=== PATIENT | male | born 1970 | race Caucasian/White ===

== ENCOUNTER 2016-06-07 07:32 | Emergency (ER) | payer SELFPAY ==
[2016-06-07] MEDS ORDERED: Fluorescein Sodium TOPICAL* 1 MG TEST ONE (07:51)
[2016-06-07] MEDS ORDERED: BSS OPTH.SOL* BTL ONE (07:51)
[2016-06-07 08:31] VITALS: BP 138/95
--- NOTE | 2016-06-07 08:34 | UC ---
Eye Complaint HPI - HPI Summary HPI Summary: GRINDING METAL YESTERDAY AND FEELS A PIECE OF METAL GOT INTO LEFT EYE. WAS WEARING SAFETY GOGGLES. NO VISUAL DISTURBANCE. SOME TEARING. FEELS BETTER TODAY. - History of Current Complaint Chief Complaint: UCEye Stated Complaint: PEICE OF METAL IN EYE Time Seen by Provider: 06/07/16 08:04 Hx Obtained From: Patient Onset/Duration: Sudden Onset, Lasting Days, Still Present - BUT MUCH BETTER TODAY Timing: Constant Severity Initially: Moderate Severity Currently: Mild Pain Intensity: 1 Pain Scale Used: 0-10 Numeric Location of Injury: Other - LEFT EYE Aggravating Factor(s): Blinking Alleviating Factor(s): Nothing Associated Signs And Symptoms: Positive: Drainage (Clear). Negative: Photophobia, Drainage (Purulent), Vision Impairment Bilateral, Vision Impairment Right, Vision Impairment Left, Fever, Swelling - Allergies/Home Medications Allergies/Adverse Reactions: Allergies Allergy/AdvReac Type Severity Reaction Status Date / Time Naproxen [From Aleve] Allergy Swelling Verified 06/07/16 07:45 Pseudoephedrine Allergy Swelling Verified 06/07/16 07:45 [From Sudafed] Home Medications: Home Medications NK [No Home Medications Reported] 06/07/16 [History Confirmed 06/07/16] PMH/Surg Hx/FS Hx/Imm Hx Endocrine History Of: Reports: Diabetes - TYPE 2- DIET CONTROLLED Cardiovascular History Of: Denies: Hypertension, Congestive Heart Failure GI/ History Of: Denies: Renal Disease - Surgical History Surgical History: Yes Surgery Procedure, Year, and Place: APPENDECTOMY, TENDON REPAIR, NECK SURGERY - Family History Known Family History: Positive: Diabetes Family History: No fam h/o resp disease - Social History Alcohol Use: Occasionally Alcohol Amount: x2/week Substance Use Type: None Smoking Status (MU): Never Smoked Tobacco Review of Systems Constitutional: Negative Eyes: Drainage, Eye Redness Respiratory: Negative Cardiovascular: Negative Gastrointestinal: Negative All Other Systems Reviewed And Are Negative: Yes Physical Exam Triage Information Reviewed: Yes Appearance: Well-Appearing, No Pain Distress, Well-Nourished Vital Signs: Initial Vital Signs Temp 98 F 06/07/16 07:40 Pulse 84 06/07/16 07:40 Resp 16 06/07/16 07:40 BP 149/90 06/07/16 07:40 Pulse Ox 99 06/07/16 07:40 Vital Signs Reviewed: Yes Eyes: Positive: Conjunctiva Inflamed - MILD LEFT EYE REDNESS, Discharge - LEFT EYE TEARING. NO PURULENCE, Other: - NO FB OR CORNEAL ABRASION SEEN ON EXAM. NO FLUORESCEIN UPTAKE ENT: Positive: Hearing grossly normal Neck: Positive: Supple Respiratory: Positive: No respiratory distress, No accessory muscle use Cardiovascular: Positive: Pulses Normal Abdomen Description: Positive: Soft Musculoskeletal: Positive: No Edema Neurological: Positive: Alert Psychological: Positive: Age Appropriate Behavior Skin: Negative: rashes Eye Complaint Course/Dx - Differential Dx/Diagnosis Provider Diagnoses: IRRITANT CONJUNCTIVITIS - LEFT EYE Discharge - Discharge Plan Condition: Stable Disposition: HOME Referrals: Adolfo Fitzgerald MD [Primary Care Provider] - If Needed Additional Instructions: IRRITANT CONJUNCTIVITIS: You have an irritation to your eye. Conjunctivitis causes redness, mild discomfort, itching, and mattering on the eyelids. Your symptoms are likely due to irritation from a foreign body that was spontaneously expelled from your eye. There was no sign of persistent foreign body or corneal abrasion on exam today. Should you develop increasing eye pain, severe swelling, decreased vision, or fail to improve as expected, please see an eye doctor [facility]. NO FOREIGN BODY OR SCRATCH SEEN ON EXAM TODAY. KEEP LUBRICATED WITH SALINE EYE DROPS. SEEK FOLLOW-UP IF SYMPTOMS NOT CONTINUING TO IMPROVE OVER THE NEXT SEVERAL DAYS.
== END 2016-06-07 08:38 | disposition home or self-care (01) ==
LOC: UCEAST 07:32
DX: H10.32 Unspecified acute conjunctivitis, left eye (principal); Z88.6 Allergy status to analgesic agent
CPT/HCPCS: 99212; A9270-GY; G0463

== ENCOUNTER 2016-11-15 14:14 | Inpatient (IN) | payer BC ==
[2016-11-15] MEDS ORDERED: Morphine INJ* 4 MG/ML 1 ML SYRINGE IV ONE (14:20)
[2016-11-15] MEDS ORDERED: Aspirin TAB* 325 MG PO ONE (14:23)
[2016-11-15] MEDS ORDERED: Ondansetron INJ* 2 MG/ML VIAL IV ONE (14:29)
[2016-11-15 14:30] LABS: Hematocrit 50 % (42-52); Hemoglobin 17.3 g/dl (14.0-18.0); Mean Corpuscular HGB Conc 35 g/dl (31-36); Mean Corpuscular Hemoglobin 28 pg (27-31); Mean Corpuscular Volume 82 fL (80-94); Mean Platelet Volume 8 um3 (7.4-10.4); Red Blood Count 6.11 10^6/ul (4.0-5.4); Red Cell Distribution Width 13 % (10.5-15); White Blood Count 9.7 10^3/ul (3.5-10.8)
[2016-11-15] MEDS ORDERED: Ondansetron INJ* 2 MG/ML VIAL ONE (14:30)
--- NOTE | 2016-11-15 14:40 | RAD ---
INDICATION: Chest pain COMPARISON: April 11, 2016 TECHNIQUE: An AP portable view obtained at 1430 hours is submitted. FINDINGS: Bones/Soft Tissues: There are no acute bony findings. There is prior cervical fusion Cardiomediastinal: The cardiomediastinal silhouette is normal. Lungs: There are no infiltrates. Pleura: There are no pleural effusions. Other: None IMPRESSION: NO ACTIVE DISEASE
[2016-11-15 14:45] LABS: Albumin 4.6 g/dL (3.2-5.2); BUN/Creatinine Ratio 11.5 (8-20); Calcium 9.8 mg/dL (8.6-10.3); EGFR African American 89.8 (>60); EGFR Non-African American 69.9 (>60); Potassium 4.4 mmol/L (3.5-5.0); Total Bilirubin 0.6 mg/dL (0.2-1.0); Total Protein 7.6 g/dL (6.4-8.9); Troponin I 0.02 ng/mL (<0.04)
[2016-11-15] MEDS ORDERED: Heparin for STEMI(*) 5,000 UNITS/ML 1 ML VIAL IV ONE (15:16)
[2016-11-15] MEDS ORDERED: Ticagrelor* 90 MG TAB PO ONE (15:16)
[2016-11-15 15:17] LABS: TSH (Thyroid Stimulating Horm) 1.58 mcIU/mL (0.34-5.60)
[2016-11-15] MEDS ORDERED: Heparin 2 UNITS/ML IVPREMIX* 3,000 ML IV ONE (15:18)
[2016-11-15] MEDS ORDERED: Iohexol 350 (CONTRAST) 200 ML MDV IV ONE ×2 (15:18→15:44)
[2016-11-15] MEDS ORDERED: Lidocaine 1% INJ* 10 MG/ML 30 ML SDV ONE (15:18)
[2016-11-15] MEDS ORDERED: nitroGLYCERIN DRIP* 250 ML ONE (15:18)
[2016-11-15] MEDS ORDERED: fentaNYL* 50 MCG/ML 2 ML VIAL (100 MCG VIAL) ONE (15:18)
[2016-11-15] MEDS ORDERED: Midazolam* 1 MG/ML 5 ML VIAL (5 MG) ONE (15:18)
[2016-11-15] MEDS ORDERED: Bivalirudin(*) 250 MG VIAL ONE (15:29)
[2016-11-15] MEDS ORDERED: Heparin(*) 1000 UNIT/ML 10 ML VIAL CATH LAB IV ONE (15:35)
[2016-11-15] MEDS ORDERED: Nitroglycerin TAB 0.4 MG* 0.4 MG TAB SL PRN (16:19)
[2016-11-15] MEDS ORDERED: Ondansetron INJ* 2 MG/ML VIAL IV PRN (16:22)
[2016-11-15] MEDS ORDERED: Docusate CAP* 100 MG PO PRN (16:22)
[2016-11-15] MEDS ORDERED: fentaNYL* 50 MCG/ML 2 ML VIAL (100 MCG VIAL) IV PRN (16:22)
[2016-11-15] MEDS ORDERED: Zolpidem TAB* 5 MG PO PRN (16:22)
[2016-11-15] MEDS ORDERED: Acetaminophen TAB* 325 MG PO PRN (16:22)
[2016-11-15] MEDS ORDERED: oxyCODONE/Acetamin 5/325 MG* TAB PO PRN (16:22)
[2016-11-15] MEDS ORDERED: NS 0.9% 1000 ML* 1,000 ML IV SCH (16:30)
[2016-11-15] MEDS: Captopril TAB* 12.5 MG PO SCH ×2 (17:23→21:21)
[2016-11-15] MEDS: Atorvastatin* 80 MG TAB PO SCH (17:23)
[2016-11-15] MEDS: Metoprolol Tartrate TAB* 25 MG PO SCH (18:20)
[2016-11-15 20:29] LABS: Troponin I 11.3 ng/mL (<0.04)
--- NOTE | 2016-11-15 20:40 | HP ---
CC: Dr. Juanito Nuñez ADMISSION HISTORY AND PHYSICAL: DATE OF ADMISSION: 11/15/16 INDICATION FOR ADMISSION: Acute coronary syndrome, chest pain. HISTORY OF PRESENT ILLNESS: The patient is a 46-year-old gentleman with a history of borderline felicita betes who came to the emergency room with chest pain. The patient states that at approximately 1 o' clock he started experiencing chest pain that radiated into his jaw and his shoulder. He had sweati ng. He had nausea. He had lightheadedness. The patient left his work and drove to [facility]. On arrival to the [facility], he continued to have the chest pain. He was given Zofran and morphine in the emergency room. His initial EKG showed normal sinus rhythm with nonspecific T- wave abnormalities. The second EKG showed normal sinus rhythm with 1-mm ST segment elevation in the anterior leads consistent with acute myocardial infarction. STEMI Team was called for urgent cardi ac catheterization. PAST MEDICAL HISTORY: Consistent with borderline diabetes, at one point he was on metformin, but he is currently not taking that medication; also has a history of arthritis. PAST SURGICAL HISTORY: None. CURRENT MEDICATIONS: None. ALLERGIES: He is intolerable to NAPROSYN and PSEUDOEPHEDRINE. FAMILY HISTORY: No family history of early coronary artery disease. SOCIAL HISTORY: He is . He denies tobacco use. Rare alcohol use. PHYSICAL EXAMINATION Height is 5 feet 8 inches, weight is 180 pounds, temperature 98.1, heart rate is 90, respiratory rat e is 18, oxygen saturation 100% on 2L, blood pressure 161/60. Sclerae anicteric. Oropharynx is pink without erythema. Carotids are 2+ without bruits. JVD is normal. Thyroid is normal. Cardiac Exa m: S1, S2, without any murmurs, rubs, or gallops. Lungs are clear to auscultation. There is no dul lness to percussion. Abdomen is soft, nontender, and nondistended, with normoactive bowel sounds. E xtremities show no edema. He has 2+ pulses throughout. He has normal pulses in his femoral arterie s. The patient is awake, alert, and oriented. He moves all 4 extremities equally. LABORATORY STUDIES: CBC within normal limits. Chemistries: Sodium 130, BUN 13, creatinine 1.13. Troponin level 0.02. TSH level is normal. D-dimer is less than 200. Chest x-ray is normal. IMPRESSION: This is a 46-year-old gentleman with a history of borderline diabetes, who came to the emergency room with typical anginal-type symptoms. The patient was diagnosed with an acute coronary syndrome, acute myocardial infarction. The patient was taken directly to the cardiac tag and label cutter. Th e patient was given heparin and Brilinta in the emergency room. Further recommendations pending the result of his cardiac catheterization. The cardiac catheterization was described in great detail to the patient and his . Risks and benefits were described. The patient is willing to proceed. [id number]/[facility] #: [id number]
--- NOTE | 2016-11-15 20:40 | ED ---
Sangeeta Almanza Edward, scribed for Janak Loya MD on 11/15/16 at 1420 . HPI Chest Pain - HPI Summary HPI Summary: 46 y/o male presents to ED c/o CP starting hour ago. Patient describes the pain as sharp. The patient was at work when it started. CP is aggravated with deep breaths, and swallowing. The pain radiates down the patient's L arm and to teeth. Associated sx: nausea, diaphoresis. PMHx diet-controlled DM. Non-smoker. FHx DM. - History of Current Complaint Hx Obtained From: Patient Onset/Duration: Started Hours Ago - 1 hour ago Timing: Constant Current Severity: Severe Chest Pain Radiates: Yes Chest Pain Radiates To:: Arm - L arm, Jaw Character: Sharp/Stabbing Aggravating Factor(s): Deep Breaths, Other: - Swallowing Associated Signs and Symptoms: Positive: Chest Pain, Diaphoresis, Nausea - Allergy/Home Medications Allergies/Adverse Reactions: Allergies Allergy/AdvReac Type Severity Reaction Status Date / Time Naproxen [From Aleve] Allergy Swelling Verified 11/15/16 19:18 Pseudoephedrine Allergy Swelling Verified 11/15/16 19:18 [From Sudafed] PMH/Surg Hx/FS Hx/Imm Hx Previously Healthy: No Endocrine/Hematology History: Reports: Hx Diabetes - TYPE 2- DIET CONTROLLED Cardiovascular History: Denies: Hx Congestive Heart Failure, Hx Hypertension GI History: Reports: Hx Diverticulosis History: Denies: Hx Renal Disease Musculoskeletal History: Denies: Hx Rheumatoid Arthritis, Hx Osteoporosis - Surgical History Surgery Procedure, Year, and Place: APPENDECTOMY, TENDON REPAIR, NECK SURGERY - Family History Known Family History: Positive: Diabetes Family History: No fam h/o resp disease - Social History Occupation: Employed Full-time Lives: With Family Alcohol Use: Occasionally Alcohol Amount: x2/week Substance Use Type: Reports: None Hx Tobacco Use: No Smoking Status (MU): Never Smoked Tobacco Review of Systems Positive: Skin Diaphoresis Eyes: Negative ENT: Negative Positive: Chest Pain Respiratory: Negative Positive: Nausea Genitourinary: Negative Musculoskeletal: Negative Skin: Negative Neurological: Negative Psychological: Normal All Other Systems Reviewed And Are Negative: Yes Physical Exam Triage Information Reviewed: Yes Vital Signs On Initial Exam: Initial Vitals Pulse Resp BP Pulse Ox 91 18 152/97 100 11/15/16 14:20 11/15/16 14:20 11/15/16 14:20 11/15/16 14:20 Vital Signs Reviewed: Yes Appearance: Positive: Well-Appearing, No Pain Distress Skin: Positive: Warm, Skin Color Reflects Adequate Perfusion, Diaphoretic Head/Face: Positive: Normal Head/Face Inspection Eyes: Positive: Normal ENT: Positive: Normal ENT inspection Neck: Positive: Supple, Nontender Respiratory/Lung Sounds: Positive: Clear to Auscultation, Breath Sounds Present Cardiovascular: Positive: RRR. Negative: Pulses are Symmetrical in both Upper and Lower Extremities - L radial pulse slightly decreased compared to R radial pulse, Murmur Abdomen Description: Positive: Nontender, Soft Bowel Sounds: Positive: Present Musculoskeletal: Positive: Normal Neurological: Positive: Normal Psychiatric: Positive: Normal, Affect/Mood Appropriate Diagnostics - Vital Signs Vital Signs Temp Pulse Resp BP Pulse Ox 11/15/16 15:23 86 18 149/102 99 11/15/16 14:34 22 11/15/16 14:25 98.1 F 90 18 161/106 100 11/15/16 14:23 100 11/15/16 14:20 91 18 152/97 100 - Laboratory Lab Results: Lab Results 11/15/16 11/15/16 11/15/16 Range/Units 14:18 14:18 14:18 WBC 9.7 (3.5-10.8) 10^3/ul RBC 6.11 H (4.0-5.4) 10^6/ul Hgb 17.3 (14.0-18.0) g/dl Hct 50 (42-52) % MCV 82 (80-94) fL MCH 28 (27-31) pg MCHC 35 (31-36) g/dl RDW 13 (10.5-15) % Plt Count 369 (150-450) 10^3/ul MPV 8 (7.4-10.4) um3 Neut % (Auto) 57.2 (38-83) % Lymph % (Auto) 28.3 (25-47) % Morton % (Auto) 9.7 H (1-9) % Eos % (Auto) 4.0 (0-6) % Baso % (Auto) 0.8 (0-2) % Absolute Neuts (auto) 5.5 (1.5-7.7) 10^3/ul Absolute Lymphs (auto) 2.7 (1.0-4.8) 10^3/ul Absolute Monos (auto) 0.9 H (0-0.8) 10^3/ul Absolute Eos (auto) 0.4 (0-0.6) 10^3/ul Absolute Basos (auto) 0.1 (0-0.2) 10^3/ul Absolute Nucleated RBC 0.01 10^3/ul Nucleated RBC % 0.1 D-Dimer, Quantitative < 200 (Less Than 230) ng/mL Sodium 130 L (133-145) mmol/L Potassium 4.4 (3.5-5.0) mmol/L Chloride 101 (101-111) mmol/L Carbon Dioxide 19 L (22-32) mmol/L Anion Gap 10 (2-11) mmol/L BUN 13 (6-24) mg/dL Creatinine 1.13 (0.67-1.17) mg/dL Est GFR ( Amer) 89.8 (>60) Est GFR (Non-Af Amer) 69.9 (>60) BUN/Creatinine Ratio 11.5 (8-20) Glucose 379 H (70-100) mg/dL Lactic Acid (0.5-2.0) mmol/L Calcium 9.8 (8.6-10.3) mg/dL Total Bilirubin 0.60 (0.2-1.0) mg/dL AST 14 (13-39) U/L ALT 20 (7-52) U/L Alkaline Phosphatase 79 (34-104) U/L Troponin I 0.02 (<0.04) ng/mL Total Protein 7.6 (6.4-8.9) g/dL Albumin 4.6 (3.2-5.2) g/dL Globulin 3.0 (2-4) g/dL Albumin/Globulin Ratio 1.5 (1-3) TSH 1.58 (0.34-5.60) mcIU/mL 11/15/16 Range/Units 14:18 WBC (3.5-10.8) 10^3/ul RBC (4.0-5.4) 10^6/ul Hgb (14.0-18.0) g/dl Hct (42-52) % MCV (80-94) fL MCH (27-31) pg MCHC (31-36) g/dl RDW (10.5-15) % Plt Count (150-450) 10^3/ul MPV (7.4-10.4) um3 Neut % (Auto) (38-83) % Lymph % (Auto) (25-47) % Morton % (Auto) (1-9) % Eos % (Auto) (0-6) % Baso % (Auto) (0-2) % Absolute Neuts (auto) (1.5-7.7) 10^3/ul Absolute Lymphs (auto) (1.0-4.8) 10^3/ul Absolute Monos (auto) (0-0.8) 10^3/ul Absolute Eos (auto) (0-0.6) 10^3/ul Absolute Basos (auto) (0-0.2) 10^3/ul Absolute Nucleated RBC 10^3/ul Nucleated RBC % D-Dimer, Quantitative (Less Than 230) ng/mL Sodium (133-145) mmol/L Potassium (3.5-5.0) mmol/L Chloride (101-111) mmol/L Carbon Dioxide (22-32) mmol/L Anion Gap (2-11) mmol/L BUN (6-24) mg/dL Creatinine (0.67-1.17) mg/dL Est GFR ( Amer) (>60) Est GFR (Non-Af Amer) (>60) BUN/Creatinine Ratio (8-20) Glucose (70-100) mg/dL Lactic Acid 2.8 H* (0.5-2.0) mmol/L Calcium (8.6-10.3) mg/dL Total Bilirubin (0.2-1.0) mg/dL AST (13-39) U/L ALT (7-52) U/L Alkaline Phosphatase (34-104) U/L Troponin I (<0.04) ng/mL Total Protein (6.4-8.9) g/dL Albumin (3.2-5.2) g/dL Globulin (2-4) g/dL Albumin/Globulin Ratio (1-3) TSH (0.34-5.60) mcIU/mL Result Diagrams: 11/15/16 14:18 11/15/16 14:18 Lab Statement: Any lab studies that have been ordered have been reviewed, and results considered in the medical decision making process. - Radiology CXR Xray Interpretation: No Acute Changes - NO ACTIVE DISEASE Radiology Interpretation Completed By: Radiologist - EKG 1 EKG Rhythm: Sinus Rhythm EKG Interpretation: 14:15 - Non specific inferior changes. Patterns of early repolarization 2 EKG Interpretation: 14:52 - QS complexes in v1 and v2, flipped T's @ inferior leads III and avF Chest Pain Course/Dx - Course Course Of Treatment: Mr. Chin presented with the sudden onset of severe left chest pain radiating to the left arm and his teeth. It was pleuritic with no other exacerbating or relieving factors. He was nauseated and diaphoretic and SOB. On arrival he was immediately brought back and an ecg was obtained. He had some mild T-wave changes inferiortly and slight ST elevation in V1 and V2 with a nice concave appearance. IV was started and he was given ASA and Morphine with some relief. Ecg was repeated 30 minutes after arrival and looked similar except that the inferior changes were more pronounced and there were QS complexes in V1 and V2. Dr. Barros was contacted at that point and came to the ED to evaluate the patient. 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 - Diagnoses Provider Diagnoses: NSTEMI (non-ST elevated myocardial infarction) - Provider Notifications Discussed Care Of Patient With: Dr. Barros - Critical Care Time Critical Care Time: 30-74 min Discharge - Discharge Plan Condition: Fair Disposition: ADMITTED TO [facility] The documentation as recorded by the Sangeeta thomas Edward accurately reflects the service I personally performed and the decisions made by , Janak Loya MD.
[2016-11-15] MEDS: Ticagrelor* 90 MG TAB PO SCH (21:22)
[2016-11-16] MEDS: Metoprolol Tartrate TAB* 25 MG PO SCH (01:07)
[2016-11-16 02:31] LABS: Troponin I 14.07 ng/mL (<0.04)
[2016-11-16 05:21] LABS: Hematocrit 45 % (42-52); Hemoglobin 15.2 g/dl (14.0-18.0); Mean Corpuscular HGB Conc 34 g/dl (31-36); Mean Corpuscular Hemoglobin 28 pg (27-31); Mean Corpuscular Volume 84 fL (80-94); Mean Platelet Volume 8 um3 (7.4-10.4); Red Blood Count 5.37 10^6/ul (4.0-5.4); Red Cell Distribution Width 13 % (10.5-15); White Blood Count 11.4 10^3/ul (3.5-10.8)
[2016-11-16 05:48] LABS: Albumin 3.7 g/dL (3.2-5.2); BUN/Creatinine Ratio 18.1 (8-20); Calcium 8.8 mg/dL (8.6-10.3); EGFR African American 128.3 (>60); EGFR Non-African American 99.7 (>60); Globulin 2.4 g/dL (2-4); HDL Cholesterol 24.2 mg/dL; Total Bilirubin 0.6 mg/dL (0.2-1.0); Total Protein 6.1 g/dL (6.4-8.9)
[2016-11-16] MEDS ORDERED: Dextrose 50% Syringe 50 ML* 25 GM/50 ML SYRINGE IV PUSH PRN (07:33)
[2016-11-16] MEDS ORDERED: Insulin GLARGINE(*) 1 UNITS UNIT SUBCUT SCH (08:00)
[2016-11-16 09:06] LABS: Troponin I 10.05 ng/mL (<0.04)
--- NOTE | 2016-11-16 09:10 | ECHO ---
Patient: KARLA SONG [facility] Rec#: [id number] : 1970 Date: 11/16/2016 Age: 46y Height: 167.64 cm / 66.0 in Weight: 83.91 kg / 184.9 lbs Sex: M BSA: 1.93 Room#: [facility] Admit Date#: 11/15/2016 Type: Inpatient Referring: Juanito Nuñez MD Reading: Juanito Nuñez MD Java Programming Professor: Lorna Hazel ARSEN CC: Adolfo Fitzgerald MD Transthoracic Echocardiogram Indication: STEMI/s/p PCI BP: 132/91 HR: 75 Rhythm: NSR Findings History: STEMI with PCI to LAD 11/15/16, DM. Technical Comments: The study quality is good. Completed at 0841. Left Ventricle: The left ventricular chamber size is normal. Septal wall hypertrophy is observed. There is a focal wall motion abnormality present.The mid to distal anterior wall, upper septum, and apical region has ssevere hypo to akinesis. There is moderate to severely decreased left ventricular systolic function. The estimated ejection fraction is 30-35%. Visually estimated LVEF is 30 %. Abnormal left ventricular diastolic function is observed. Left Atrium: The left atrial chamber size is normal. Right Ventricle: The right ventricular cavity size is normal. The right ventricular global systolic function is normal. Right Atrium: The right atrial cavity size is normal. Aortic Valve: The aortic valve is trileaflet. There is no evidence of aortic valve thickening. There is no evidence of aortic regurgitation. There is no evidence of aortic stenosis. Mitral Valve: The mitral valve leaflets are mildly thickened. There is mild mitral regurgitation. There is no evidence of mitral stenosis. Tricuspid Valve: The tricuspid valve leaflets are normal. There is a physiologic tricuspid regurgitation. Unable to estimate the right ventricular systolic pressure. There is no tricuspid stenosis. Pulmonic Valve: The pulmonic valve appears normal. There is trace to mild pulmonic regurgitation. There is no pulmonic stenosis. Pericardium: The pericardium appears normal. Aorta: There is no dilatation of the ascending aorta. There is no dilatation of the aortic arch. There is no dilation of the aortic root. Pulmonary Artery: The main pulmonary artery appears normal. Venous: The inferior vena cava appears normal in size. There is a greater than 50% respiratory change in the inferior vena cava dimension. Conclusions The left ventricular chamber size is normal. The mid to distal anterior wall, upper septum, and apical region has ssevere hypo to akinesis. There is moderate to severely decreased left ventricular systolic function. The estimated ejection fraction is 30-35%. Visually estimated LVEF is 30 %. There is mild mitral regurgitation. There is trace to mild pulmonic regurgitation. No reports of prior studies were offered for comparison. Measurements Name Value Normal Range RVIDd (AP) 2D 2.7 cm (0.9 - 2.6) RVDdMajor (2D) 2.9 cm (2.2 - 4.4) RAd ISD 4CH 3.8 cm (3.4 - 4.9) RA (A4C)W 3.3 cm (2.9 - 4.6) IVSd (2D) 1.2 cm (0.6 - 1) LVPWd (2D) 0.9 cm (0.6 - 1) LVIDd (2D) 3.7 cm (3.6 - 5.4) LVIDs (2D) 2.8 cm - LV FS (2D) 29 % (25 - 45) Aortic Annulus 2 cm (1.4 - 2.6) Ao root diameter (2D) 3.3 cm (2.1 - 3.5) Ascending Ao 2.8 cm (2.1 - 3.4) Aortic arch 2.2 cm (1.8 - 3.4) Descending Ao 0.4 cm - LA dimension (AP) 2D 3.5 cm (2.3 - 3.8) LAd ISD 4CH 5 cm (2.9 - 5.3) LA ISD 4CH W 3.9 cm (2.5 - 4.5) Name Value Normal Range LA ESV SP 4CH (A/L) 50 ml - LA ESV SP 2CH (A/L) 44 ml - LA ESV BP (A/L) 47 ml - LA ESV BP (A/L) index 24.48 ml/m2 - LA ESV SP 4CH (MOD) 46 ml - LA ESV SP 2CH (MOD) 43 ml - Name Value Normal Range MV E-wave Vmax 0.8 m/sec - MV deceleration time 198 msec - MV A-wave Vmax 0.9 m/sec - MV E:A ratio 1.2 ratio - LV septal e' Vmax 0.08 m/sec - LV lateral e' Vmax 0.07 m/sec - LV E:e' septal ratio 10 ratio - LV E:e' lateral ratio 11.42 ratio - Name Value Normal Range AV Vmax 1.3 m/sec - AV VTI 27.82 cm - AV peak gradient 6.35 mmHg - AV mean gradient 2.7 mmHg - LVOT Vmax 1.1 m/sec - LVOT VTI 23 cm - LVOT peak gradient 4.93 mmHg - LVOT mean gradient 2.26 mmHg - Name Value Normal Range TR Vmax 2.4 m/sec - TR peak gradient 23 mmHg - RAP 3 mmHg - RVSP 26 mmHg - IVC diameter 2.1 cm - Name Value Normal Range PV Vmax 0.6 m/sec - PV peak gradient 1.44 mmHg -
[2016-11-16] MEDS: Ticagrelor* 90 MG TAB PO SCH ×2 (09:18→21:31)
[2016-11-16] MEDS: Aspirin Low Dose CHEW TAB* 81 MG PO SCH (09:18)
[2016-11-16] MEDS: Captopril TAB* 12.5 MG PO SCH ×3 (09:19→21:30)
[2016-11-16] MEDS: Enoxaparin(*) 40 MG/0.4 ML SYR SUBCUT SCH (09:19)
[2016-11-16] MEDS: Insulin LISPRO* 1 UNITS UNIT SUBCUT SCH ×3 (09:19→17:57)
[2016-11-16] MEDS: Metoprolol Succinate XL TAB* 25 MG PO SCH ×2 (09:20→21:30)
--- NOTE | 2016-11-16 16:10 | CONS ---
CC: Dr. Nuñez; Dr. Fitzgerald. * CONSULTATION REPORT: DATE OF CONSULTATION: 11/16/16 REQUESTING PHYSICIAN: Dr. Nuñez. PRIMARY CARE PROVIDER: Dr. Fitzgerald. REASON FOR CONSULTATION: Diabetic management. HISTORY OF PRESENT ILLNESS: Vinayak Chin is a 46-year-old male who presented to the hospital urgently on 11/15/16 complaining of chest pain and was noted to have an ST elevation [place]. 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 Nuñez placed 2 stents in the proximal and mid distal LAD. Post cardiac catheterization, he was noted to have cardiomyopathy with EF of 30%. He is currently monitored in the intensive care unit post cath. The patient has a history of diabetes, diagnosed 5 years ago and as per the patient, he discontinued his metformin since his sugars had normalized and he did not need the medications any more. It was noted that the patient's sugars had been into 200 levels throughout hospital stay and his hemoglobin A1c is 11.7. Furthermore, when the patient was further questioned, he stated that he did not see Dr. Fitzgerald for over and year and a half. He stated that he checked his sugars was over 3 months ago. PAST MEDICAL HISTORY: 1. History of diabetes 5 years ago, currently not treated. 2. Appendectomy. 3. History of C-spine fusion. 4. History of right arm tendon repair. 5. History of diverticulosis with diverticulitis in the past. MEDICATIONS: At home, none. Current medications in the hospital include: 1. Aspirin 81 mg daily. 2. Captopril 12.5 mg 3 times a day. 3. Atorvastatin 80 mg daily. 4. Colace on a p.r.n. basis. 5. Lovenox 40 mg subcutaneously every 24 hours for DVT prophylaxis. 6. Metoprolol succinate 25 mg b.i.d. 7. Nitroglycerin on a p.r.n. basis. 8. Brilinta 90 mg b.i.d. 9. Fentanyl on a p.r.n. basis. ALLERGIES: Include NAPROXEN and PSEUDOEPHEDRINE. SOCIAL HISTORY: The patient denies any tobacco or drug use. He drinks a 6- pack beer on almost a weekly basis. 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 FAMILY HISTORY: Positive for father with diabetes, mother with heart disease diagnosed into her 50s and current diagnosis of hypertension. Both his parents are currently in their 60s. The patient's younger sister has a history of CHF and diabetes. REVIEW OF SYSTEMS: Please see history of present illness. Specifically, the patient stated that his sugars had been between 80 and 120 fasting up to 3 months ago when he stopped checking them. He denies any headaches, blurry vision. He denies any polyuria or polydipsia. After cardiac catheterization, he had not had any more episodes of chest pain. All the remaining 14 systems were reviewed with the patient and otherwise were negative. PHYSICAL EXAMINATION: Blood pressure 120/82, heart rate of 85 and regular, respiratory rate 13, oxygen saturation 98% on room air, temperature of 98.4. General: This is a very pleasant 46-year-old male with a BMI of 30. The patient is in no acute distress. Alert, awake, and oriented x3. HEENT: Head is atraumatic and normocephalic. Eyes: Pupils are equal, reactive to light and accommodation. Oropharynx clear. Mucosa moist. Neck: Supple. No JVD. No bruit bilaterally. Cardiovascular: Regular rate and rhythm. No murmur. Respiratory: Clear to auscultation bilaterally. Abdomen: Soft and nontender. Bowel sounds present in all 4 quadrants. Extremities: There is no edema. Pulses are +2 bilaterally. No clubbing or cyanosis. Neuro Evaluation: Speech is clear. Cranial nerves II through XII grossly intact. Motor strength is 5/5 bilaterally. On evaluation of the skin, no ecchymotic areas or rashes noted. Psychiatric evaluation: Pleasant, cooperative with evaluation, oriented x3 with no evidence of anxiety or depression. LABORATORY DATA/DIAGNOSTIC STUDIES: Current laboratory data showed white blood cell count of 11.4, hemoglobin of 15.2, hematocrit of 45, and platelets of 314. Sodium is 131, potassium 4.0, chloride 104, carbon dioxide 21, BUN 15, creatinine 0.83. Liver function tests showed a mild elevation of AST at 52, otherwise unremarkable. The patient's today's troponin was 10.05 and the patient's troponin peaked at 14 yesterday. The patient's LDL was noted to be 108, total cholesterol of 169, and triglycerides of 185. TSH at admission was 1.58. Hemoglobin A1c of 11.4. The patient's transthoracic echocardiogram showed EF of 30% to 35% with mid to distal arterial wall, upper septum, and apical regions severe hypokinesis, and mild mitral regurgitation. The patient's most recent EKG obtained today showed mild resolving ST elevation in V1 and V3. Reciprocal changes that were present prior to this ECG in the inferior leads are now resolved. ASSESSMENT AND PLAN: 1. In regards to coronary artery disease, this is under the care of Dr. Nuñez. The patient is on Brilinta, aspirin, and beta-blockers, and DAXA inhibitors. 2. In regards to diabetes, judging from the patient's hemoglobin A1c, diabetes had been uncontrolled for quite some time. The patient was educated about the need of the use of diabetic diet and using his glucometer right now and on a b.i.d. basis. The patient is going to be placed on insulin sliding scale with Accu-Cheks 3 times a day. Diabetic diet is going to be instituted while in the hospital. He is also going to be placed on insulin none to 35 units daily, but I suspect he may not need it at discharge. The patient will most likely needed to placed back on metformin, which he took initially 5 years ago when he was initially diagnosed with diabetes. The metformin dose cannot be started right way due to the fact patient received contrast within the past 24 hours. I will ask for diabetic project management intern and educator from [facility] to see the patient in consultation. The patient would benefit from referral to [facility] at discharge. Thank you very much for allowing me to see your patient in consult. We will see the patient on a daily basis. [id number]/[facility] #: [id number] MTDD
--- NOTE | 2016-11-16 17:16 | CATH ---
CC: Dr. Adolfo Fitzgerald * CARDIAC CATHETERIZATION REPORT: DATE OF PROCEDURE: 11/15/16 - ROOM #ICU-05 INDICATION FOR PROCEDURE: The patient presents with severe chest discomfort, abnormal EKG suggesting an acute coronary syndrome. PROCEDURE: Coronary arteriography, left heart catheterization, left ventriculography, primary stenting of the proximal LAD with a 2.5 x 16 mm long Synergy drug-eluting stent post dilated to 2.65 to 2.7 mm, primary stenting of the mid to distal LAD with a 2.25 x 24 mm long Synergy drug-eluting stent. DESCRIPTION OF PROCEDURE: The patient was interviewed and examined in the emergency room where the risks and benefits were explained, he understood them and wished to proceed. He was brought to the cardiovascular laboratory where formal time-out was performed. He was prepped and draped in sterile fashion. The right groin area was anesthetized with 1% lidocaine. The right femoral artery was cannulated and a 6-Tuvaluan introducer was placed. Coronary arteriography was performed utilizing a 5-Tuvaluan 4 curved right coronary catheter. The left coronary artery was assessed utilizing a 6-Tuvaluan VL 3.5 curved RunWay guide catheter. Of note, the patient had already received 4000 units of heparin in the emergency room and received Brilinta 180 mg when placed on the labor mediator table. He also received Versed and fentanyl. Decision was then made to intervene into the left anterior descending artery. ACT was checked and found to be subtherapeutic and as such Angiomax bolus and Angiomax drip was started. A 0.014 All Star wire was advanced down the left anterior descending artery and primary stenting of the proximal LAD was performed utilizing the 2.5 x 16 mm long Synergy drug-eluting stent. Following this, the 2.25 x 24 mm long Synergy drug-eluting stent was deployed. Post deployment inflations were made in the proximal balloon utilizing a 2.5 x 8 mm long Emerge balloon to greater than 20 atmospheres. Following this, left heart catheterization was performed utilizing a 5-Tuvaluan pigtail catheter, advanced to the ascending aorta where central aortic pressure was recorded. The catheter was then passed across the aortic valve into the left ventricle where left ventricular pressure was recorded. Left ventriculography was performed utilizing a total of 24 cc of Omnipaque dye at a rate of 12 cc per second. The catheter was then pulled back across the aortic valve to recheck gradient. At the end of the case, injection was made into the right femoral sheath to assess eligibility to utilize closure device. It was found to be acceptable for this and as such a 6/7 Tuvaluan Mynx closure device was deployed with good hemostasis. The total contrast used was 155 cc of Omnipaque dye. The radiation exposure included 9.5 minutes of fluoro time. The air kerma radiation was 839 milligray. The DAP radiation was 5275 microgray per sq. m. RESULTS: HEMODYNAMIC DATA: LEFT HEART CATHETERIZATION: Central aortic pressure recorded at 105/75 with a mean of 90, left ventricular pressure was 108 over left ventricular end diastolic pressure of 19. LEFT VENTRICULOGRAPHY: Performed in the INMAN projection revealed severe hypo to akinesis of the anterior and apical region with preservation of the inferior wall. The overall ejection fraction markedly diminished at 25% to 30%. No significant mitral regurgitation was noted. CORONARY ARTERIOGRAPHY: A. Right coronary artery - a dominant vessel supplying the PDA followed by a thin posterior LV branch, followed by a larger bifurcating posterior left ventricular branch. There was mild disease in the proximal segment of the right coronary artery of approximately 15% to 20%. The mid segment had an area of 25 to 30, the mid to distal areas had turned down to the inferior surface of the heart at 35% to 40% narrowing. The bifurcating last posterior left ventricular branches, more medial branch had a proximal narrowing of 65% to 70%. B. Left coronary artery: 1. Left main - widely patent with no significant narrowing seen. 2. Left anterior descending artery - the left anterior descending artery supplied a large posteriorly directed diagonal branch, which had a mid-segment stenosis of 60% to 65%. The distal portion of this posteriorly directed diagonal branch bifurcated in a small caliber segment with an area of 80% stenosis seen in the superior bifurcation branch. This vessel is extremely small in caliber and clearly less than 2.0 mm. The continuation of the left anterior descending artery had a critical 95% stenosis in a small caliber segment. It gave off a thin mid diagonal branch, which had an ostial narrowing of 60%. This vessel appeared to be somewhat small in caliber. The continuation of the LAD in its mid segment had a critical 90% stenosis followed by a diffusely narrowed segment with up to 80% stenosis. The distal portion was very small in caliber and had a 70% narrowing. 3. Circumflex artery - a non-dominant vessel supplying a thin first obtuse marginal branch and ending in a low-lying obtuse marginal branch. Most of the posterior circulation is being supplied by a posteriorly directed first diagonal branch. INTERVENTION INTO LEFT ANTERIOR DESCENDING ARTERY: Successful reduction of critical 95% lesion in the proximal portion with residual stenosis of 0%, LAM-3 flow, no dissection seen as well as reduction of diffusely long diseased mid to distal segment utilizing a 2.25 x 24 mm long Synergy drug-eluting stent reducing a 90% and 80% stenosis to 0%, LAM-3 flow, no dissection seen. OVERALL ASSESSMENT: Significant multi-vessel disease as described above with critical lesions within the left anterior descending artery. Successful drug- eluting stent placement to left anterior descending artery proximal and mid to distal areas described above. Aggressive therapy with high-dose statin in addition to DAXA inhibitor, beta-mary jane therapy will be pursued. The hospitalist will be consulted for diabetic management given his history of prior diabetes and clearly small caliber vessel suggesting diabetic disease. Eventual assessment of posterior left ventricular branch of right coronary artery and posteriorly directed diagonal branch will be pursued at a later date. [id number]/[facility] #: [id number] [facility]
[2016-11-16] MEDS: Atorvastatin* 80 MG TAB PO SCH (18:06)
[2016-11-17 06:02] LABS: BUN/Creatinine Ratio 16.3 (8-20); Calcium 9.2 mg/dL (8.6-10.3); EGFR African American 113.9 (>60); EGFR Non-African American 88.6 (>60); Potassium 4.2 mmol/L (3.5-5.0)
--- NOTE | 2016-11-17 07:53 | PN ---
Subjective Date of Service: 11/17/16 Interval History: Pt feels "fine", ambulated in the unit yesterday, no CP/SOB Objective Active Medications: Acetaminophen (Tylenol Tab*) 650 mg PO Q4H PRN PRN Reason: HEADACHE/PAIN Aspirin (Aspirin Low Dose Tab*) 81 mg PO DAILY [facility] Last Admin: 11/16/16 09:18 Dose: 81 mg Atorvastatin Calcium (Lipitor*) 80 mg PO 1700 [facility] Last Admin: 11/16/16 18:06 Dose: 80 mg Dextrose (D50w Syringe 50 Ml*) 12.5 gm IV PUSH .FOR FS < 60 - SS PRN PRN Reason: FS < 60 Docusate Sodium (Colace Cap*) 100 mg PO DAILY PRN PRN Reason: CONSTIPATION Enoxaparin Sodium (Lovenox(*)) 40 mg SUBCUT Q24H [facility] Last Admin: 11/16/16 09:19 Dose: 40 mg Fentanyl Citrate (Fentanyl*) 25 mcg IV Q2H PRN PRN Reason: PAIN Insulin Glargine (Lantus(*)) 10 units SUBCUT Q24H [facility] Insulin Human Lispro (Humalog*) 0 units SUBCUT AC [facility] PRN Reason: Protocol Last Admin: 11/16/16 17:57 Dose: 2 unit Lisinopril (Prinivil Tab*) 5 mg PO DAILY [facility] Metformin HCl (Glucophage*) 500 mg PO 0800,1700 [facility] Metoprolol Succinate (Toprol Xl Tab*) 25 mg PO BID [facility] Last Admin: 11/16/16 21:30 Dose: 25 mg Nitroglycerin (Nitroglycerin Tab 0.4 Mg*) 0.4 mg SL Q5M PRN PRN Reason: ANGINA Ondansetron HCl (Zofran Inj*) 4 mg IV Q4H PRN PRN Reason: NAUSEA Oxycodone/Acetaminophen (Percocet 5/325 Tab*) 1 tab PO Q6H PRN PRN Reason: PAIN Ticagrelor (Brilinta*) 90 mg PO BID [facility] Last Admin: 11/16/16 21:31 Dose: 90 mg Zolpidem Tartrate (Ambien Tab*) 5 mg PO BEDTIME PRN PRN Reason: INSOMNIA Last Admin: 11/15/16 21:41 Dose: 5 mg Vital Signs 11/16/16 11/16/16 11/16/16 08:00 08:01 08:30 Temperature 98 F Pulse Rate 74 69 Respiratory 18 17 Rate Blood Pressure 116/83 126/91 (mmHg) O2 Sat by Pulse 99 99 Oximetry 11/16/16 11/16/16 11/16/16 09:00 09:30 10:00 Temperature Pulse Rate 78 75 73 Respiratory 14 16 15 Rate Blood Pressure 111/85 118/84 124/78 (mmHg) O2 Sat by Pulse 99 99 97 Oximetry 11/16/16 11/16/16 11/16/16 10:30 11:00 11:13 Temperature 98.4 F Pulse Rate 74 71 Respiratory 17 12 Rate Blood Pressure 114/79 117/77 (mmHg) O2 Sat by Pulse 98 96 Oximetry 11/16/16 11/16/16 11/16/16 11:30 12:00 12:30 Temperature Pulse Rate 75 83 83 Respiratory 18 16 13 Rate Blood Pressure 97/66 109/76 120/82 (mmHg) O2 Sat by Pulse 96 98 98 Oximetry 11/16/16 11/16/16 11/16/16 13:00 13:30 14:00 Temperature Pulse Rate 92 88 87 Respiratory 15 17 14 Rate Blood Pressure 117/85 112/79 109/83 (mmHg) O2 Sat by Pulse 98 98 99 Oximetry 11/16/16 11/16/16 11/16/16 14:30 15:00 15:30 Temperature 98.8 F Pulse Rate 87 86 84 Respiratory 21 21 20 Rate Blood Pressure 94/62 93/64 114/76 (mmHg) O2 Sat by Pulse 97 97 96 Oximetry 11/16/16 11/16/16 11/16/16 16:00 16:30 17:00 Temperature Pulse Rate Respiratory 10 12 16 Rate Blood Pressure 111/79 109/84 110/77 (mmHg) O2 Sat by Pulse Oximetry 11/16/16 11/16/16 11/16/16 18:00 19:00 19:35 Temperature 99.2 F Pulse Rate 84 Respiratory 15 15 Rate Blood Pressure 126/86 115/79 (mmHg) O2 Sat by Pulse 99 Oximetry 11/16/16 11/16/16 11/16/16 20:00 21:00 21:33 Temperature Pulse Rate 85 86 102 Respiratory 27 17 24 Rate Blood Pressure 110/82 91/59 118/79 (mmHg) O2 Sat by Pulse 97 96 99 Oximetry 11/16/16 11/16/16 11/16/16 22:00 23:00 23:50 Temperature 100.3 F Pulse Rate 84 85 Respiratory 18 17 Rate Blood Pressure 107/73 106/60 (mmHg) O2 Sat by Pulse 97 97 Oximetry 11/16/16 11/16/16 11/17/16 23:57 23:59 00:00 Temperature Pulse Rate 82 80 Respiratory 14 14 15 Rate Blood Pressure (mmHg) O2 Sat by Pulse 98 97 Oximetry 11/17/16 11/17/16 11/17/16 00:01 01:00 01:42 Temperature Pulse Rate 80 92 Respiratory 12 12 15 Rate Blood Pressure 93/68 110/83 (mmHg) O2 Sat by Pulse 97 97 Oximetry 11/17/16 11/17/16 11/17/16 02:00 03:00 03:01 Temperature Pulse Rate 87 93 90 Respiratory 22 24 23 Rate Blood Pressure 91/63 88/60 (mmHg) O2 Sat by Pulse 96 96 96 Oximetry 11/17/16 11/17/16 11/17/16 03:02 03:03 03:25 Temperature Pulse Rate 90 86 Respiratory 23 12 Rate Blood Pressure 79/66 90/62 90/59 (mmHg) O2 Sat by Pulse 96 97 Oximetry 11/17/16 11/17/16 11/17/16 04:00 04:14 05:00 Temperature 98.6 F Pulse Rate 83 86 Respiratory 11 18 21 Rate Blood Pressure 94/52 95/77 (mmHg) O2 Sat by Pulse 96 95 Oximetry 11/17/16 11/17/16 06:00 07:00 Temperature Pulse Rate 83 81 Respiratory 17 13 Rate Blood Pressure 92/66 86/60 (mmHg) O2 Sat by Pulse 96 97 Oximetry Oxygen Devices in Use Now: None Appearance: 46 yo M in nAD, aAOx3 Eyes: No Scleral Icterus, PERRLA Ears/Nose/Mouth/Throat: NL Teeth, Lips, Gums, Mucous Membranes Moist Neck: NL Appearance and Movements; NL JVP, Trachea Midline Respiratory: Symmetrical Chest Expansion and Respiratory Effort, Clear to Auscultation Cardiovascular: NL Sounds; No Murmurs; No JVD, RRR Abdominal: NL Sounds; No Tenderness; No Distention, No Hepatosplenomegaly Lymphatic: No Cervical Adenopathy Extremities: No Edema, No Clubbing, Cyanosis Skin: No Rash or Ulcers, No Nodules or Sclerosis Neurological: Alert and Oriented x 3, NL Muscle Strength and Tone Result Diagrams: 11/16/16 05:00 11/17/16 05:39 Additional Lab and Data: Lab Results 11/15/16 11/15/16 11/15/16 Range/Units 14:18 14:18 14:18 WBC 9.7 (3.5-10.8) 10^3/ul RBC 6.11 H (4.0-5.4) 10^6/ul Hgb 17.3 (14.0-18.0) g/dl Hct 50 (42-52) % MCV 82 (80-94) fL MCH 28 (27-31) pg MCHC 35 (31-36) g/dl RDW 13 (10.5-15) % Plt Count 369 (150-450) 10^3/ul MPV 8 (7.4-10.4) um3 Neut % (Auto) 57.2 (38-83) % Lymph % (Auto) 28.3 (25-47) % [place] % (Auto) 9.7 H (1-9) % Eos % (Auto) 4.0 (0-6) % Baso % (Auto) 0.8 (0-2) % Absolute Neuts (auto) 5.5 (1.5-7.7) 10^3/ul Absolute Lymphs (auto) 2.7 (1.0-4.8) 10^3/ul Absolute Monos (auto) 0.9 H (0-0.8) 10^3/ul Absolute Eos (auto) 0.4 (0-0.6) 10^3/ul Absolute Basos (auto) 0.1 (0-0.2) 10^3/ul Absolute Nucleated RBC 0.01 10^3/ul Nucleated RBC % 0.1 D-Dimer, Quantitative < 200 (Less Than 230) ng/mL Sodium 130 L (133-145) mmol/L Potassium 4.4 (3.5-5.0) mmol/L Chloride 101 (101-111) mmol/L Carbon Dioxide 19 L (22-32) mmol/L Anion Gap 10 (2-11) mmol/L BUN 13 (6-24) mg/dL Creatinine 1.13 (0.67-1.17) mg/dL Est GFR ( Amer) 89.8 (>60) Est GFR (Non-Af Amer) 69.9 (>60) BUN/Creatinine Ratio 11.5 (8-20) Glucose 379 H (70-100) mg/dL Lactic Acid (0.5-2.0) mmol/L Calcium 9.8 (8.6-10.3) mg/dL Total Bilirubin 0.60 (0.2-1.0) mg/dL AST 14 (13-39) U/L ALT 20 (7-52) U/L Alkaline Phosphatase 79 (34-104) U/L Troponin I 0.02 (<0.04) ng/mL Total Protein 7.6 (6.4-8.9) g/dL Albumin 4.6 (3.2-5.2) g/dL Globulin 3.0 (2-4) g/dL Albumin/Globulin Ratio 1.5 (1-3) TSH 1.58 (0.34-5.60) mcIU/mL // Range/Units 14:18 WBC (3.5-10.8) 10^3/ul RBC (4.0-5.4) 10^6/ul Hgb (14.0-18.0) g/dl Hct (42-52) % MCV (80-94) fL MCH (27-31) pg MCHC (31-36) g/dl RDW (10.5-15) % Plt Count (150-450) 10^3/ul MPV (7.4-10.4) um3 Neut % (Auto) (38-83) % Lymph % (Auto) (25-47) % [place] % (Auto) (1-9) % Eos % (Auto) (0-6) % Baso % (Auto) (0-2) % Absolute Neuts (auto) (1.5-7.7) 10^3/ul Absolute Lymphs (auto) (1.0-4.8) 10^3/ul Absolute Monos (auto) (0-0.8) 10^3/ul Absolute Eos (auto) (0-0.6) 10^3/ul Absolute Basos (auto) (0-0.2) 10^3/ul Absolute Nucleated RBC 10^3/ul Nucleated RBC % D-Dimer, Quantitative (Less Than 230) ng/mL Sodium (133-145) mmol/L Potassium (3.5-5.0) mmol/L Chloride (101-111) mmol/L Carbon Dioxide (22-32) mmol/L Anion Gap (2-11) mmol/L BUN (6-24) mg/dL Creatinine (0.67-1.17) mg/dL Est GFR ( Amer) (>60) Est GFR (Non-Af Amer) (>60) BUN/Creatinine Ratio (8-20) Glucose (70-100) mg/dL Lactic Acid 2.8 H* (0.5-2.0) mmol/L Calcium (8.6-10.3) mg/dL Total Bilirubin (0.2-1.0) mg/dL AST (13-39) U/L ALT (7-52) U/L Alkaline Phosphatase (34-104) U/L Troponin I (<0.04) ng/mL Total Protein (6.4-8.9) g/dL Albumin (3.2-5.2) g/dL Globulin (2-4) g/dL Albumin/Globulin Ratio (1-3) TSH (0.34-5.60) mcIU/mL Assess/Plan/Problems-Billing Assessment: 46 yo M with h/o DM 5 yrs ago that resolved with diet as per pt, now s/p 2 x stents in LAD when presented with STEMI - Patient Problems (1) STEMI (ST elevation myocardial infarction) Comment: s/p cath -2x stents to LAD on ASA/Brilinta/lopressor/lisinopril as per Dr. Nuñez. Low SBP at night, may need med adjustment EF 30%-possibly stunned myocardium (2) DM2 (diabetes mellitus, type 2) Comment: Hba1C >11, in the past tx with diet. Cont Lantus - titrate the dose today, cont ISS. Plan to d/c on metformin only. starting metformin today, most likely will need further tritration as outpatient DM education pending Nutrition consult re:cardiac/ADA diet ordered (3) DVT prophylaxis Comment: lovenox Status and Disposition: consult for med management of DM. will follow on daily basis
[2016-11-17] MEDS: Ticagrelor* 90 MG TAB PO SCH ×2 (08:58→21:14)
[2016-11-17] MEDS: Metoprolol Succinate XL TAB* 25 MG PO SCH ×2 (08:58→21:14)
[2016-11-17] MEDS: metFORMIN* 500 MG TAB PO SCH ×2 (08:58→17:33)
[2016-11-17] MEDS: Insulin GLARGINE(*) 1 UNITS UNIT SUBCUT SCH (08:59)
[2016-11-17] MEDS: Insulin LISPRO* 1 UNITS UNIT SUBCUT SCH ×3 (08:59→17:33)
[2016-11-17] MEDS: Aspirin Low Dose CHEW TAB* 81 MG PO SCH (08:59)
[2016-11-17] MEDS: Enoxaparin(*) 40 MG/0.4 ML SYR SUBCUT SCH (09:00)
[2016-11-17] MEDS ORDERED: Lisinopril TAB* 5 MG PO SCH ×2 (09:00→10:45)
[2016-11-17] MEDS: Lisinopril TAB* 5 MG PO SCH (11:02)
[2016-11-17] MEDS: Atorvastatin* 80 MG TAB PO SCH (17:33)
[2016-11-18 05:37] LABS: BUN/Creatinine Ratio 26.6 (8-20); Calcium 9.4 mg/dL (8.6-10.3); EGFR African American 135.8 (>60); EGFR Non-African American 105.6 (>60); Potassium 3.9 mmol/L (3.5-5.0)
[2016-11-18] MEDS: Insulin GLARGINE(*) 1 UNITS UNIT SUBCUT SCH (08:37)
[2016-11-18] MEDS: Insulin LISPRO* 1 UNITS UNIT SUBCUT SCH ×2 (08:38→13:20)
[2016-11-18] MEDS: Enoxaparin(*) 40 MG/0.4 ML SYR SUBCUT SCH (08:38)
[2016-11-18] MEDS: Metoprolol Succinate XL TAB* 25 MG PO SCH (08:38)
[2016-11-18] MEDS: Lisinopril TAB* 5 MG PO SCH (08:38)
[2016-11-18] MEDS: Aspirin Low Dose CHEW TAB* 81 MG PO SCH (08:38)
[2016-11-18] MEDS: metFORMIN* 500 MG TAB PO SCH (08:38)
[2016-11-18] MEDS: Ticagrelor* 90 MG TAB PO SCH (08:38)
--- NOTE | 2016-11-18 08:42 | PN ---
Subjective Date of Service: 11/18/16 Interval History: Pt had another Echo this aM, awaiting results. Feels "fine", denies CP/SOB Objective Active Medications: Acetaminophen (Tylenol Tab*) 650 mg PO Q4H PRN PRN Reason: HEADACHE/PAIN Aspirin (Aspirin Low Dose Tab*) 81 mg PO DAILY [facility] Last Admin: 11/17/16 08:59 Dose: 81 mg Atorvastatin Calcium (Lipitor*) 80 mg PO 1700 [facility] Last Admin: 11/17/16 17:33 Dose: 80 mg Dextrose (D50w Syringe 50 Ml*) 12.5 gm IV PUSH .FOR FS < 60 - SS PRN PRN Reason: FS < 60 Docusate Sodium (Colace Cap*) 100 mg PO DAILY PRN PRN Reason: CONSTIPATION Enoxaparin Sodium (Lovenox(*)) 40 mg SUBCUT Q24H [facility] Last Admin: 11/17/16 09:00 Dose: 40 mg Fentanyl Citrate (Fentanyl*) 25 mcg IV Q2H PRN PRN Reason: PAIN Insulin Glargine (Lantus(*)) 10 units SUBCUT Q24H [facility] Last Admin: 11/17/16 08:59 Dose: 10 units Insulin Human Lispro (Humalog*) 0 units SUBCUT AC [facility] PRN Reason: Protocol Last Admin: 11/17/16 17:33 Dose: 4 unit Lisinopril (Prinivil Tab*) 2.5 mg PO 0900 [facility] Last Admin: 11/17/16 11:02 Dose: 2.5 mg Metformin HCl (Glucophage*) 500 mg PO 0800,1700 [facility] Last Admin: 11/17/16 17:33 Dose: 500 mg Metoprolol Succinate (Toprol Xl Tab*) 25 mg PO BID [facility] Last Admin: 11/17/16 21:14 Dose: 25 mg Nitroglycerin (Nitroglycerin Tab 0.4 Mg*) 0.4 mg SL Q5M PRN PRN Reason: ANGINA Ondansetron HCl (Zofran Inj*) 4 mg IV Q4H PRN PRN Reason: NAUSEA Oxycodone/Acetaminophen (Percocet 5/325 Tab*) 1 tab PO Q6H PRN PRN Reason: PAIN Ticagrelor (Brilinta*) 90 mg PO BID [facility] Last Admin: 11/17/16 21:14 Dose: 90 mg Zolpidem Tartrate (Ambien Tab*) 5 mg PO BEDTIME PRN PRN Reason: INSOMNIA Last Admin: 11/15/16 21:41 Dose: 5 mg Vital Signs 11/17/16 11/17/16 11/17/16 09:00 09:01 10:00 Temperature Pulse Rate 89 87 77 Respiratory 11 9 16 Rate Blood Pressure 88/57 105/82 96/81 (mmHg) O2 Sat by Pulse 97 99 98 Oximetry 11/17/16 11/17/16 11/17/16 11:00 12:00 14:07 Temperature 98 F 97.4 F Pulse Rate 90 Respiratory 13 18 Rate Blood Pressure 100/67 (mmHg) O2 Sat by Pulse Oximetry 11/17/16 11/17/16 11/17/16 14:16 14:43 14:50 Temperature 97.4 F Pulse Rate 90 Respiratory 18 18 8 Rate Blood Pressure 100/67 (mmHg) O2 Sat by Pulse 100 Oximetry 11/17/16 11/17/16 11/17/16 15:00 15:10 15:20 Temperature Pulse Rate Respiratory 11 10 14 Rate Blood Pressure (mmHg) O2 Sat by Pulse Oximetry 11/17/16 11/17/16 11/17/16 15:23 15:30 15:40 Temperature 98.1 F Pulse Rate 100 Respiratory 18 5 2 Rate Blood Pressure 101/73 (mmHg) O2 Sat by Pulse 98 Oximetry 11/17/16 11/17/16 11/17/16 15:50 16:00 16:10 Temperature Pulse Rate Respiratory 11 7 7 Rate Blood Pressure (mmHg) O2 Sat by Pulse Oximetry 11/17/16 11/17/16 11/17/16 16:20 16:30 16:40 Temperature Pulse Rate Respiratory 16 17 10 Rate Blood Pressure (mmHg) O2 Sat by Pulse Oximetry 11/17/16 11/17/16 11/17/16 16:50 17:00 17:10 Temperature Pulse Rate Respiratory 8 8 7 Rate Blood Pressure (mmHg) O2 Sat by Pulse Oximetry 11/17/16 11/17/16 11/17/16 17:20 17:30 17:40 Temperature Pulse Rate Respiratory 7 16 11 Rate Blood Pressure (mmHg) O2 Sat by Pulse Oximetry 11/17/16 11/17/16 11/17/16 17:50 18:00 18:10 Temperature Pulse Rate Respiratory 13 7 5 Rate Blood Pressure (mmHg) O2 Sat by Pulse Oximetry 11/17/16 11/17/16 11/17/16 18:20 18:30 18:40 Temperature Pulse Rate Respiratory 16 16 11 Rate Blood Pressure (mmHg) O2 Sat by Pulse Oximetry 11/17/16 11/17/16 11/17/16 18:50 19:00 19:10 Temperature Pulse Rate Respiratory 10 8 13 Rate Blood Pressure (mmHg) O2 Sat by Pulse Oximetry 11/17/16 11/17/16 11/17/16 19:17 19:20 19:24 Temperature 97.4 F 98.0 F Pulse Rate 90 102 Respiratory 16 14 17 Rate Blood Pressure 100/67 111/75 (mmHg) O2 Sat by Pulse 97 98 Oximetry 11/17/16 11/17/16 11/17/16 19:30 19:35 19:40 Temperature Pulse Rate Respiratory 15 11 12 Rate Blood Pressure (mmHg) O2 Sat by Pulse Oximetry 11/17/16 11/17/16 11/17/16 19:49 19:50 20:00 Temperature Pulse Rate 97 Respiratory 18 11 11 Rate Blood Pressure (mmHg) O2 Sat by Pulse Oximetry 11/17/16 11/17/16 11/17/16 20:10 20:20 20:30 Temperature Pulse Rate Respiratory 21 15 10 Rate Blood Pressure (mmHg) O2 Sat by Pulse Oximetry 11/17/16 11/17/16 11/17/16 20:40 20:50 21:00 Temperature Pulse Rate Respiratory 6 8 11 Rate Blood Pressure (mmHg) O2 Sat by Pulse Oximetry 11/17/16 11/17/16 11/17/16 21:10 21:20 21:30 Temperature Pulse Rate Respiratory 10 16 25 Rate Blood Pressure (mmHg) O2 Sat by Pulse Oximetry 11/17/16 11/17/16 11/17/16 21:40 21:50 22:00 Temperature Pulse Rate Respiratory 0 0 5 Rate Blood Pressure (mmHg) O2 Sat by Pulse Oximetry 11/17/16 11/17/16 11/17/16 22:10 22:20 22:30 Temperature Pulse Rate Respiratory 0 0 13 Rate Blood Pressure (mmHg) O2 Sat by Pulse Oximetry 11/17/16 11/17/16 11/17/16 22:40 22:50 23:00 Temperature Pulse Rate Respiratory 0 12 19 Rate Blood Pressure (mmHg) O2 Sat by Pulse Oximetry 11/17/16 11/17/16 11/17/16 23:10 23:20 23:30 Temperature Pulse Rate Respiratory 7 20 22 Rate Blood Pressure (mmHg) O2 Sat by Pulse Oximetry 11/17/16 11/17/16 11/17/16 23:40 23:44 23:45 Temperature 98.7 F Pulse Rate 97 Respiratory 15 20 Rate Blood Pressure 92/55 (mmHg) O2 Sat by Pulse 97 Oximetry 11/17/16 11/18/16 11/18/16 23:50 00:00 00:10 Temperature Pulse Rate Respiratory 2 0 20 Rate Blood Pressure 97/55 (mmHg) O2 Sat by Pulse Oximetry 11/18/16 11/18/16 11/18/16 00:20 00:30 00:40 Temperature Pulse Rate Respiratory 1 0 0 Rate Blood Pressure (mmHg) O2 Sat by Pulse Oximetry 11/18/16 11/18/16 11/18/16 00:50 01:00 01:10 Temperature Pulse Rate Respiratory 14 20 20 Rate Blood Pressure (mmHg) O2 Sat by Pulse Oximetry 11/18/16 11/18/16 11/18/16 01:20 01:30 01:40 Temperature Pulse Rate Respiratory 19 10 18 Rate Blood Pressure (mmHg) O2 Sat by Pulse Oximetry 11/18/16 11/18/16 11/18/16 01:50 02:00 02:10 Temperature Pulse Rate Respiratory 6 0 0 Rate Blood Pressure (mmHg) O2 Sat by Pulse Oximetry 11/18/16 11/18/16 11/18/16 02:20 02:30 02:40 Temperature Pulse Rate Respiratory 0 3 6 Rate Blood Pressure (mmHg) O2 Sat by Pulse Oximetry 11/18/16 11/18/16 11/18/16 02:50 03:00 03:10 Temperature Pulse Rate Respiratory 0 0 11 Rate Blood Pressure (mmHg) O2 Sat by Pulse Oximetry 11/18/16 11/18/16 11/18/16 03:20 03:30 03:40 Temperature Pulse Rate Respiratory 16 0 0 Rate Blood Pressure (mmHg) O2 Sat by Pulse Oximetry 11/18/16 11/18/16 11/18/16 03:45 03:50 04:00 Temperature 98.0 F Pulse Rate 87 Respiratory 20 12 10 Rate Blood Pressure 100/80 (mmHg) O2 Sat by Pulse 95 Oximetry 11/18/16 11/18/16 11/18/16 04:10 04:20 04:30 Temperature Pulse Rate Respiratory 18 18 19 Rate Blood Pressure (mmHg) O2 Sat by Pulse Oximetry 11/18/16 11/18/16 11/18/16 04:40 04:50 05:00 Temperature Pulse Rate Respiratory 14 6 1 Rate Blood Pressure (mmHg) O2 Sat by Pulse Oximetry 11/18/16 11/18/16 11/18/16 05:10 05:20 05:30 Temperature Pulse Rate Respiratory 6 15 0 Rate Blood Pressure (mmHg) O2 Sat by Pulse Oximetry 11/18/16 11/18/16 11/18/16 05:40 05:50 06:00 Temperature Pulse Rate Respiratory 21 4 0 Rate Blood Pressure (mmHg) O2 Sat by Pulse Oximetry 11/18/16 11/18/16 11/18/16 06:10 06:20 06:30 Temperature Pulse Rate Respiratory 24 0 3 Rate Blood Pressure (mmHg) O2 Sat by Pulse Oximetry 11/18/16 11/18/16 11/18/16 06:40 06:50 07:00 Temperature Pulse Rate Respiratory 0 0 0 Rate Blood Pressure (mmHg) O2 Sat by Pulse Oximetry 11/18/16 11/18/16 11/18/16 07:10 07:20 07:30 Temperature Pulse Rate Respiratory 2 2 10 Rate Blood Pressure (mmHg) O2 Sat by Pulse Oximetry 11/18/16 11/18/16 11/18/16 07:34 07:40 07:50 Temperature 98.1 F Pulse Rate 85 Respiratory 18 4 20 Rate Blood Pressure 112/82 (mmHg) O2 Sat by Pulse 98 Oximetry 11/18/16 11/18/16 11/18/16 08:00 08:10 08:20 Temperature Pulse Rate Respiratory 5 11 16 Rate Blood Pressure (mmHg) O2 Sat by Pulse Oximetry Oxygen Devices in Use Now: None Appearance: 46 yo M in nAD, aAOx3 Eyes: No Scleral Icterus, PERRLA Ears/Nose/Mouth/Throat: NL Teeth, Lips, Gums, Mucous Membranes Moist Neck: NL Appearance and Movements; NL JVP, Trachea Midline Respiratory: Symmetrical Chest Expansion and Respiratory Effort, Clear to Auscultation Cardiovascular: NL Sounds; No Murmurs; No JVD, RRR Abdominal: NL Sounds; No Tenderness; No Distention Lymphatic: No Cervical Adenopathy Extremities: No Edema, No Clubbing, Cyanosis Skin: No Rash or Ulcers, No Nodules or Sclerosis Neurological: Alert and Oriented x 3, NL Muscle Strength and Tone Result Diagrams: 11/16/16 05:00 11/18/16 04:42 Additional Lab and Data: Lab Results 11/15/16 11/15/16 11/15/16 Range/Units 14:18 14:18 14:18 WBC 9.7 (3.5-10.8) 10^3/ul RBC 6.11 H (4.0-5.4) 10^6/ul Hgb 17.3 (14.0-18.0) g/dl Hct 50 (42-52) % MCV 82 (80-94) fL MCH 28 (27-31) pg MCHC 35 (31-36) g/dl RDW 13 (10.5-15) % Plt Count 369 (150-450) 10^3/ul MPV 8 (7.4-10.4) um3 Neut % (Auto) 57.2 (38-83) % Lymph % (Auto) 28.3 (25-47) % Bland % (Auto) 9.7 H (1-9) % Eos % (Auto) 4.0 (0-6) % Baso % (Auto) 0.8 (0-2) % Absolute Neuts (auto) 5.5 (1.5-7.7) 10^3/ul Absolute Lymphs (auto) 2.7 (1.0-4.8) 10^3/ul Absolute Monos (auto) 0.9 H (0-0.8) 10^3/ul Absolute Eos (auto) 0.4 (0-0.6) 10^3/ul Absolute Basos (auto) 0.1 (0-0.2) 10^3/ul Absolute Nucleated RBC 0.01 10^3/ul Nucleated RBC % 0.1 D-Dimer, Quantitative < 200 (Less Than 230) ng/mL Sodium 130 L (133-145) mmol/L Potassium 4.4 (3.5-5.0) mmol/L Chloride 101 (101-111) mmol/L Carbon Dioxide 19 L (22-32) mmol/L Anion Gap 10 (2-11) mmol/L BUN 13 (6-24) mg/dL Creatinine 1.13 (0.67-1.17) mg/dL Est GFR ( Amer) 89.8 (>60) Est GFR (Non-Af Amer) 69.9 (>60) BUN/Creatinine Ratio 11.5 (8-20) Glucose 379 H (70-100) mg/dL Lactic Acid (0.5-2.0) mmol/L Calcium 9.8 (8.6-10.3) mg/dL Total Bilirubin 0.60 (0.2-1.0) mg/dL AST 14 (13-39) U/L ALT 20 (7-52) U/L Alkaline Phosphatase 79 (34-104) U/L Troponin I 0.02 (<0.04) ng/mL Total Protein 7.6 (6.4-8.9) g/dL Albumin 4.6 (3.2-5.2) g/dL Globulin 3.0 (2-4) g/dL Albumin/Globulin Ratio 1.5 (1-3) TSH 1.58 (0.34-5.60) mcIU/mL // Range/Units 14:18 WBC (3.5-10.8) 10^3/ul RBC (4.0-5.4) 10^6/ul Hgb (14.0-18.0) g/dl Hct (42-52) % MCV (80-94) fL MCH (27-31) pg MCHC (31-36) g/dl RDW (10.5-15) % Plt Count (150-450) 10^3/ul MPV (7.4-10.4) um3 Neut % (Auto) (38-83) % Lymph % (Auto) (25-47) % Bland % (Auto) (1-9) % Eos % (Auto) (0-6) % Baso % (Auto) (0-2) % Absolute Neuts (auto) (1.5-7.7) 10^3/ul Absolute Lymphs (auto) (1.0-4.8) 10^3/ul Absolute Monos (auto) (0-0.8) 10^3/ul Absolute Eos (auto) (0-0.6) 10^3/ul Absolute Basos (auto) (0-0.2) 10^3/ul Absolute Nucleated RBC 10^3/ul Nucleated RBC % D-Dimer, Quantitative (Less Than 230) ng/mL Sodium (133-145) mmol/L Potassium (3.5-5.0) mmol/L Chloride (101-111) mmol/L Carbon Dioxide (22-32) mmol/L Anion Gap (2-11) mmol/L BUN (6-24) mg/dL Creatinine (0.67-1.17) mg/dL Est GFR ( Amer) (>60) Est GFR (Non-Af Amer) (>60) BUN/Creatinine Ratio (8-20) Glucose (70-100) mg/dL Lactic Acid 2.8 H* (0.5-2.0) mmol/L Calcium (8.6-10.3) mg/dL Total Bilirubin (0.2-1.0) mg/dL AST (13-39) U/L ALT (7-52) U/L Alkaline Phosphatase (34-104) U/L Troponin I (<0.04) ng/mL Total Protein (6.4-8.9) g/dL Albumin (3.2-5.2) g/dL Globulin (2-4) g/dL Albumin/Globulin Ratio (1-3) TSH (0.34-5.60) mcIU/mL Assess/Plan/Problems-Billing Assessment: 46 yo M with h/o DM 5 yrs ago that resolved with diet as per pt, now s/p 2 x stents in LAD when presented with STEMI - Patient Problems (1) STEMI (ST elevation myocardial infarction) Comment: s/p cath -2x stents to LAD on ASA/Brilinta/lopressor/lisinopril as per Dr. Nuñez. Low SBP at night, may need med adjustment EF 30%-possibly stunned myocardium repeat Echo today. Planned for possible d/c today per cardiology (2) DM2 (diabetes mellitus, type 2) Comment: Hba1C >11, in the past tx with diet. Plan to d/c on Metformin 500 mg BID, dose may need to be titrated up in 1-2 weeks. Script for metformin sent to pt's pharmacy. Pt has a gluceometer, knows how to use it. Educated that in the next 1-2 weeks his BG may be still elevated. Referral to [facility] at discharge completed (3) DVT prophylaxis Comment: lovenox Status and Disposition: consult for med management of DM. will sign off and see pt as needed. Thank you for consult
--- NOTE | 2016-11-18 11:17 | ECHO ---
Patient: KARLA SONG [facility] Rec#: [id number] : 1970 Date: 11/18/2016 Age: 46y Height: 167.64 cm / 66.0 in Weight: 83.64 kg / 184.3 lbs Sex: M BSA: 1.93 Room#: 433 Admit Date#: 11/15/2016 Type: Inpatient Referring: Juanito Nuñez MD Reading: Neal Coronado DO Construction Project Coordinator: Charleen [facility] Transthoracic Echocardiogram Indication: STEMI, s/p PCI BP: 153/88 HR: 80 Rhythm: NSR Findings History: STEMI with PCI to LAD 11/15/16, DM. This is a LIMITED study to reassess LV systolic function and valve regurgitation. Technical Comments: The study quality is good. Completed at 0835. Left Ventricle: The left ventricular chamber size is normal. There is moderately decreased left ventricular systolic function. The estimated ejection fraction is 35-40%. The mid anteroseptal, mid anterior, apical septal, apical anterior, and apical inferior wall segments are hypokinetic (score 2). Overall wallmotion score index is 2.00 Mitral Valve: The mitral valve leaflets are mildly thickened. There is a trace of mitral regurgitation. Tricuspid Valve: The tricuspid valve leaflets are normal. There is a physiologic tricuspid regurgitation. Pericardium: There is no significant pericardial effusion. Conclusions The left ventricular chamber size is normal. There is moderately decreased left ventricular systolic function. The estimated ejection fraction is 35-40% with wall motions as described above Limited study, LVEF has improved from 30% since full echo on 11/16/2016 Measurements Name Value Normal Range LV EDV SP 4CH (MOD) 76.94 ml - Wallmotion BAS Not Seen BA Not Seen BAL Not Seen KATIE Not Seen BI Not Seen BIS Not Seen MAS Hypokinetic MA Hypokinetic MAL Not Seen MIL Not Seen LA Not Seen MIS Not Seen Hypokinetic AA Hypokinetic AL Not Seen AI Hypokinetic APEX Hypokinetic
[2016-11-18 12:00] VITALS: BP 109/78
--- NOTE | 2016-11-18 13:16 | PN ---
Subjective Date of Service: 11/18/16 Interval History: DOS 11/18/2016 no chest pain or dyspnea Repeat LVEF today limited TTE 35-40% tele: sr, no arrhythmias. Medications Active Medications: Acetaminophen (Tylenol Tab*) 650 mg PO Q4H PRN PRN Reason: HEADACHE/PAIN Aspirin (Aspirin Low Dose Tab*) 81 mg PO DAILY [facility] Last Admin: 11/18/16 08:38 Dose: 81 mg Atorvastatin Calcium (Lipitor*) 80 mg PO 1700 [facility] Last Admin: 11/17/16 17:33 Dose: 80 mg Dextrose (D50w Syringe 50 Ml*) 12.5 gm IV PUSH .FOR FS < 60 - SS PRN PRN Reason: FS < 60 Docusate Sodium (Colace Cap*) 100 mg PO DAILY PRN PRN Reason: CONSTIPATION Enoxaparin Sodium (Lovenox(*)) 40 mg SUBCUT Q24H [facility] Last Admin: 11/18/16 08:38 Dose: 40 mg Fentanyl Citrate (Fentanyl*) 25 mcg IV Q2H PRN PRN Reason: PAIN Insulin Glargine (Lantus(*)) 10 units SUBCUT Q24H [facility] Last Admin: 11/18/16 08:37 Dose: 10 units Insulin Human Lispro (Humalog*) 0 units SUBCUT AC [facility] PRN Reason: Protocol Last Admin: 11/18/16 08:38 Dose: 4 unit Lisinopril (Prinivil Tab*) 2.5 mg PO 0900 [facility] Last Admin: 11/18/16 08:38 Dose: 2.5 mg Metformin HCl (Glucophage*) 500 mg PO 0800,1700 [facility] Last Admin: 11/18/16 08:38 Dose: 500 mg Metoprolol Succinate (Toprol Xl Tab*) 25 mg PO BID [facility] Last Admin: 11/18/16 08:38 Dose: 25 mg Nitroglycerin (Nitroglycerin Tab 0.4 Mg*) 0.4 mg SL Q5M PRN PRN Reason: ANGINA Ondansetron HCl (Zofran Inj*) 4 mg IV Q4H PRN PRN Reason: NAUSEA Oxycodone/Acetaminophen (Percocet 5/325 Tab*) 1 tab PO Q6H PRN PRN Reason: PAIN Ticagrelor (Brilinta*) 90 mg PO BID [facility] Last Admin: 11/18/16 08:38 Dose: 90 mg Zolpidem Tartrate (Ambien Tab*) 5 mg PO BEDTIME PRN PRN Reason: INSOMNIA Last Admin: 11/15/16 21:41 Dose: 5 mg Objective Vital Signs: Temp Pulse Resp BP Pulse Ox 97.7 F 94 16 109/78 98 11/18/16 11:59 11/18/16 11:59 11/18/16 11:59 11/18/16 11:59 11/18/16 11:59 Oxygen Devices in Use Now: None Appearance: nad, pleasant Neck: NL Appearance and Movements; NL JVP Respiratory: Symmetrical Chest Expansion and Respiratory Effort, Clear to Auscultation Cardiovascular: NL Sounds; No Murmurs; No JVD, RRR, No Edema Abdominal: NL Sounds; No Tenderness; No Distention Extremities: No Edema Neurological: Alert and Oriented x 3 Laboratory Results: 11/16/16 05:00 11/18/16 04:42 Total Bilirubin 0.60 mg/dL (0.2-1.0) 11/16/16 05:00 AST 52 U/L (13-39) H 11/16/16 05:00 ALT 23 U/L (7-52) 11/16/16 05:00 Alkaline Phosphatase 68 U/L (34-104) 11/16/16 05:00 CK-MB (CK-2) 68.8 ng/mL (0.6-6.3) H 11/16/16 08:25 Total Protein 6.1 g/dL (6.4-8.9) L 11/16/16 05:00 Albumin 3.7 g/dL (3.2-5.2) 11/16/16 05:00 Globulin 2.4 g/dL (2-4) 11/16/16 05:00 Albumin/Globulin Ratio 1.5 (1-3) 11/16/16 05:00 Triglycerides 185 mg/dL 11/16/16 05:00 Cholesterol 169 mg/dL 11/16/16 05:00 LDL Cholesterol 108 mg/dL 11/16/16 05:00 HDL Cholesterol 24.2 mg/dL 11/16/16 05:00 TSH 1.58 mcIU/mL (0.34-5.60) 11/15/16 14:18 11/15/16 11/16/16 11/16/16 20:00 02:00 08:25 Troponin I 11.30 H* 14.07 H* 10.05 H* Diagnostic Imaging: Coronary angiogram 11/15/2016: LVEF 25-30% with anterior and apical akinesis. [facility] to proximal and mid LAD culprit lesions. Residual obstructive RPL and diagonal branch EKG Data: ekg 11/17/2016 NSR, anteroseptal q waves with ST/T changes across precordium consistent with recent AK Assessment/Plan Mr. Chin is a 46 year old man admitted with an anterior wall AK s/p PCI/[facility] to LAD, peak troponin ~ 15, limited LVEF today 35-40%. Residual obstructive CAD as above, has ambulated and is asymptomatic. - Continue cardiac medications as above - Patient will be discharged on metformin as per Dr. Henriquez and follow up with Dr. Fitzgerald for further management - Patient has follow up with Dr. Nuñez on 11/23/2016
--- NOTE | 2016-11-18 13:27 | DS ---
Date of admission 11/15/2016 Date of discharge 11/18/2016 Inpatient status Cardiology service Dr. Henriquez, Hospitalist consulted for diabetes control PMD Dr. Fitzgerald Primary diagnosis 1. Anterior wall PA with PCI/[facility] to proximal and mid LAD 11/15/[address] Nuñez, residual obstructive RPL and diagonal disease (see catheterization report for full details) - Peak cTnI ~ 14 - LVEF improved from 25% on LV gram to 35-40% by limited TTE day of discharge - No recurrent angina, arrhythmias or hemodynamic instability Secondary diagnosis 2. Uncontrolled diabetes, Hgba1c 11.7 - Consulted by Dr. Henriquez, to start metformin 500 mg PO BID and follow up with PMD for further management Medications at discharge 1. Aspirin 81 mg po daily 2. Atorvastatin 80 mg po daily 3. Toprol 25 mg PO BID 4. Lisinopril 2.5 mg PO daily 5. Brillinta 90 mg PO BID 6 Metformin 500 mg PO BID Patient has follow up appointment with Dr. Nuñez on , 11/23/2016 at 2:00 PM for further evaluation and management See discharge instructions for further details 11/16/16 05:00 11/18/16 04:42 Total Bilirubin 0.60 mg/dL (0.2-1.0) 11/16/16 05:00 AST 52 U/L (13-39) H 11/16/16 05:00 ALT 23 U/L (7-52) 11/16/16 05:00 Alkaline Phosphatase 68 U/L (34-104) 11/16/16 05:00 CK-MB (CK-2) 68.8 ng/mL (0.6-6.3) H 11/16/16 08:25 Total Protein 6.1 g/dL (6.4-8.9) L 11/16/16 05:00 Albumin 3.7 g/dL (3.2-5.2) 11/16/16 05:00 Globulin 2.4 g/dL (2-4) 11/16/16 05:00 Albumin/Globulin Ratio 1.5 (1-3) 11/16/16 05:00 Triglycerides 185 mg/dL 11/16/16 05:00 Cholesterol 169 mg/dL 11/16/16 05:00 LDL Cholesterol 108 mg/dL 11/16/16 05:00 HDL Cholesterol 24.2 mg/dL 11/16/16 05:00 TSH 1.58 mcIU/mL (0.34-5.60) 11/15/16 14:18 11/15/16 11/15/16 11/16/16 14:18 20:00 02:00 Troponin I 0.02 11.30 H* 14.07 H* 11/16/16 08:25 Troponin I 10.05 H* I sent 60 minutes on discharge time including direct patient counseling and coordinating care
== END 2016-11-18 13:58 | disposition home or self-care (01) | DRG 174 ==
LOC: ED 14:14 → ICU 16:16 → MEDTELE 11-17 14:02
PROVIDERS: ADMIT Internal Medicine Cardiovascular Disease; ATTEND Internal Medicine Cardiovascular Disease
PROC: 3E03317 Introduction of Other Thrombolytic into Peripheral Vein, Percutaneous Approach (ICD-10-PCS; 2016-11-15)
PROC: B2111ZZ Fluoroscopy of Multiple Coronary Arteries using Low Osmolar Contrast (ICD-10-PCS; 2016-11-15)
PROC: 4A023N7 Measurement of Cardiac Sampling and Pressure, Left Heart, Percutaneous Approach (ICD-10-PCS; 2016-11-15)
PROC: B2151ZZ Fluoroscopy of Left Heart using Low Osmolar Contrast (ICD-10-PCS; 2016-11-15)
PROC: 027035Z Dilation of Coronary Artery, One Artery with Two Drug-eluting Intraluminal Devices, Percutaneous Approach (ICD-10-PCS; principal; 2016-11-15 15:00)
DX: I21.09 ST elevation (STEMI) myocardial infarction involving other coronary artery of anterior wall (principal); I42.9 Cardiomyopathy, unspecified; K57.90 Diverticulosis of intestine, part unspecified, without perforation or abscess without bleeding; M19.90 Unspecified osteoarthritis, unspecified site; I34.0 Nonrheumatic mitral (valve) insufficiency; I25.10 Atherosclerotic heart disease of native coronary artery without angina pectoris; E11.65 Type 2 diabetes mellitus with hyperglycemia; Z79.82 Long term (current) use of aspirin; Z79.02 Long term (current) use of antithrombotics/antiplatelets; Z88.6 Allergy status to analgesic agent; Z88.8 Allergy status to other drugs, medicaments and biological substances; Z83.3 Family history of diabetes mellitus; Z72.89 Other problems related to lifestyle; Z79.84 Long term (current) use of oral hypoglycemic drugs; Z82.49 Family history of ischemic heart disease and other diseases of the circulatory system
CPT/HCPCS: 36415; 71010; 80048; 80053; 80061; 82550; 82553; 83036; 83605; 84443; 84484; 85025; 85379; 93005; 93306; 93308; A9270-GY; C1725; C1760; C1769; C1876; C1887; C9606-LD; J1644; J1650; J2001; J2250; J2270; J2405; J3010

== ENCOUNTER 2018-04-11 07:52 | Emergency (ER) | payer BC ==
[2018-04-11 08:12] VITALS: BP 141/89
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
--- NOTE | 2018-04-12 11:05 | UC ---
- Progress Note Progress Note: There was no x-ray ordered on April 11, 2018 therefore there is no discrepancy. Course/Dx - Diagnoses Provider Diagnoses: Biceps tendon rupture Discharge - Sign-Out/Discharge Documenting (check all that apply): Patient Departure All imaging exams completed and their final reports reviewed: Yes - Discharge Plan Condition: Good Disposition: HOME Patient Education Materials: Tendon Rupture (ED) Referrals: Adolfo Fitzgerald MD [Primary Care Provider] - Additional Instructions: You have an apt with Dr. Landon at [facility] at [address] [place] [address] 8:45 Follow up per her recommendations - Billing Disposition and Condition Condition: GOOD Disposition: Home
--- NOTE | 2018-04-12 11:07 | ED ---
Progress - Progress Note Progress Note: . Course/Dx - Course Course Of Treatment: This is a 47 yr old with RUE injury. Assessment. Concern for biceps tendon rupture. Plan. 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 Apt with Dr. Landon at [facility] at [address] [place] [address] at 8:45. Follow up per her recommendations - Diagnoses Provider Diagnoses: Biceps tendon rupture Discharge - Sign-Out/Discharge Documenting (check all that apply): Patient Departure All imaging exams completed and their final reports reviewed: No Studies - Discharge Plan Condition: Good Disposition: HOME Patient Education Materials: Tendon Rupture (ED) Referrals: Adolfo Fitzgerald MD [Primary Care Provider] - Additional Instructions: You have an apt with Dr. Landon at [facility] at [address] [place] [address] 8:45 Follow up per her recommendations - Billing Disposition and Condition Condition: GOOD Disposition: Home
== END 2018-04-11 08:30 | disposition home or self-care (01) ==
LOC: UCEAST 07:52
DX: Z88.8 Allergy status to other drugs, medicaments and biological substances (principal)
CPT/HCPCS: 99211; G0463

== ENCOUNTER 2018-05-19 12:54 | Emergency (ER) | payer BC ==
[2018-05-19 13:10] VITALS: BP 109/79
--- NOTE | 2018-05-19 13:41 | UC ---
Ear Complaint HPI - HPI Summary HPI Summary: 47-year-old male presents with onset of left ear pain 4 days ago. States the next day he started having drainage from the ear with a small amount of blood. Reports tinnitus and decreased hearing. Denies fever, chills, URI symptoms, dizziness, vertigo, trismus, cough, chest pain, shortness of breath, abdominal pain, nausea, or vomiting. - History of Current Complaint Chief Complaint: UCEar Stated Complaint: EAR PAIN Time Seen by Provider: 05/19/18 13:27 Hx Obtained From: Patient Pain Intensity: 0 - Allergies/Home Medications Allergies/Adverse Reactions: Allergies Allergy/AdvReac Type Severity Reaction Status Date / Time naproxen [From Aleve] Allergy Swelling Verified 05/08/18 19:42 pseudoephedrine Allergy Swelling Verified 05/08/18 19:42 [From Sudafed] PMH/Surg Hx/FS Hx/Imm Hx Endocrine History: Diabetes, Dyslipidemia Cardiovascular History: Cardiac Disease, Hypertension, Myocardial Infarction - Surgical History Surgical History: Yes Surgery Procedure, Year, and Place: APPENDECTOMY,RT ELBOW CYST ON TENDON REPAIR , NECK SURGERY C6-C7 fusion, stent x2 October 2016 - Family History Known Family History: Positive: Hypertension, Diabetes Family History: No fam h/o resp disease - Social History Occupation: Employed Full-time Lives: With Family Alcohol Use: Occasionally Alcohol Amount: x2/week Substance Use Type: None Smoking Status (MU): Never Smoked Tobacco Have You Smoked in the Last Year: No - Immunization History Most Recent Influenza Vaccination: none Most Recent Pneumonia Vaccination: none Review of Systems All Other Systems Reviewed And Are Negative: Yes Constitutional: Negative: Fever, Chills Eyes: Negative: Drainage, Eye Redness ENT: Positive: Ear Ache. Negative: Dental Pain, Sore Throat, Nasal Discharge, Sinus Congestion, Sinus Pain/Tenderness Respiratory: Negative: Shortness Of Breath, Cough Cardiovascular: Negative: Palpitations, Chest Pain Gastrointestinal: Negative: Abdominal Pain, Vomiting, Nausea Musculoskeletal: Positive: Negative Neurological: Positive: Negative Is Patient Immunocompromised?: No Physical Exam - Summary Physical Exam Summary: GENERAL APPEARANCE: Well developed, well nourished, alert and cooperative, and appears to be in no acute distress. EYES: Conjunctiva clear. No drainage. Vision is grossly intact. EARS: Right external auditory canal normal. Right TM with mild scarring otherwise normal. Left TM erythematous with rupture. Scant amount of purulent drainage was noted in the external auditory canal. NOSE: No nasal discharge. THROAT: Oral cavity and pharynx normal. No inflammation, swelling, exudate, or lesions. Teeth and gingiva in good general condition. NECK: Neck supple, non-tender without lymphadenopathy. CARDIAC: Normal S1 and S2. No S3, S4 or murmurs. Rhythm is regular. There is no peripheral edema, cyanosis or pallor. Extremities are warm and well perfused. Capillary refill is less than 2 seconds. LUNGS: Clear to auscultation without rales, rhonchi, wheezing or diminished breath sounds. ABDOMEN: Positive bowel sounds. Soft, nondistended, nontender. No guarding or rebound. No masses or hepatosplenomegally. MUSKULOSKELETAL: ROM intact to all extremities. No joint erythema or tenderness. Normal muscular development. Normal gait. SKIN: Skin normal color, texture and turgor with no lesions or eruptions. Triage Information Reviewed: Yes Vital Signs: Initial Vital Signs Temp 98 F 05/19/18 13:08 Pulse 83 05/19/18 13:08 Resp 16 05/19/18 13:08 BP 109/79 05/19/18 13:08 Pulse Ox 100 05/19/18 13:08 Vital Signs Reviewed: Yes Ear Complaint Course/Dx - Course Course Of Treatment: 47-year-old male presents with onset of left ear pain 4 days ago. States the next day he started having drainage from the ear with a small amount of blood. Reports tinnitus and decreased hearing. Denies fever, chills, URI symptoms, dizziness, vertigo, trismus, cough, chest pain, shortness of breath, abdominal pain, nausea, or vomiting. Afebrile. Vital signs stable. Exam revealed dull female in no acute distress. There was erythema with a perforation of the left TM noted. Scant amount of purulent drainage noted within the external auditory canal of the left ear. Remainder of exam was unremarkable. Will treat with Augmentin 875 mg twice a day 10 days as well as ofloxacin eardrops twice a day 14 days. Discussed need to avoid getting water into the ear. He is to follow-up with ENT within 5 days for recheck. Warning symptoms were reviewed with the patient. Verbalizes understanding and agrees with plan of care. - Differential Dx/Diagnosis Differential Diagnosis/HQI/PQRI: Cerumen Impaction, Otitis Externa, Otitis Media , URI Provider Diagnosis: Left otitis media with spontaneous rupture of eardrum Discharge - Sign-Out/Discharge Documenting (check all that apply): Patient Departure All imaging exams completed and their final reports reviewed: No Studies - Discharge Plan Condition: Stable Disposition: HOME Prescriptions: Amoxicillin/Clavulanate TAB* [Augmentin TAB 875*] 875 mg PO BID #20 tab Ofloxacin 0.3% (Ear Drop)* [Floxin 0.3% OTIC.[facility] [place] [facility] (Ear Drop)] 10 drop LEFT EAR BID 14 Days #1 btl Patient Education Materials: Ruptured Eardrum (ED), Ear Infection (ED) Referrals: Adolfo Fitzgerald MD [Primary Care Provider] - Long Zacarias MD [Medical Doctor] - 5 Days (Call Monday for appointment) Additional Instructions: Your exam revealed a left ear infection with a ruptured ear drum due to the infection. Start Augmentin 1 tab twice daily for 10 days. Take with food to avoid upset stomach. Be sure to complete the entire course even if you are feeling better. Use ofloxacin ear drops. Instill 10 drops into the affected ear twice daily for 14 days. Avoid getting any water into the ear. Follow up with Dr. Zacarias, ear, nose, and throat, within 5 days for recheck. Call Monday morning for an appointment. Seek immediate medical attention in the emergency room if you develop fever greater than 100.5 F, have dizziness, severe headache, neck pain, are unable to open/close your mouth, or have any worsening of symptoms. - Billing Disposition and Condition Condition: STABLE Disposition: Home
== END 2018-05-19 14:09 | disposition home or self-care (01) ==
LOC: UCEAST 12:54
DX: H66.92 Otitis media, unspecified, left ear (principal); H72.92 Unspecified perforation of tympanic membrane, left ear; I25.10 Atherosclerotic heart disease of native coronary artery without angina pectoris; I10 Essential (primary) hypertension; Z95.5 Presence of coronary angioplasty implant and graft; Z88.8 Allergy status to other drugs, medicaments and biological substances
CPT/HCPCS: 99212; G0463

== ENCOUNTER 2020-11-10 11:12 | Observation (INO) ==
[2020-11-10 11:39] LABS: ABS Basophils 0.1 10^3/ul (0-0.2); ABS Eosinophils 0.7 10^3/ul (0-0.6); ABS Lymphocytes 2.5 10^3/ul (1.0-4.8); ABS Neutrophils 4.8 10^3/ul (1.5-7.7); Eosinophil % 7.3 %; Hematocrit 40 % (42-52); Hemoglobin 14.1 g/dL (14.0-18.0); Lymphocyte % 27.6 %; Mean Corpuscular HGB Conc 35 g/dL (31-36); Mean Corpuscular Hemoglobin 29 pg (27-31); Mean Corpuscular Volume 83 fL (80-94); Mean Platelet Volume 7.3 fL (7.4-10.4); Platelet Count 374 10^3/uL (150-450); Red Blood Count 4.81 10^6 /uL (4.18-5.48); Red Cell Distribution Width 14 % (10-15)
[2020-11-10 12:33] LABS: Albumin 4.3 g/dL (3.2-5.2); Albumin/Globulin Ratio 1.8 (1-3); Calcium 9.5 mg/dL (8.6-10.3); EGFR African American 99.1 (>60); EGFR Non-African American 81.9 (>60); Globulin 2.4 g/dL (2-4); Potassium 4.5 mmol/L (3.5-5.0); Total Bilirubin 0.5 mg/dL (0.2-1.0); Total Protein 6.7 g/dL (6.4-8.9)
[2020-11-10] MEDS ORDERED: nitroGLYCERIN DRIP 25,000 MCG/250 ML BTL IV ONE (12:45)
[2020-11-10] MEDS ORDERED: Morphine 4 MG/ML VIAL (1 ml) IV ONE (12:45)
[2020-11-10] MEDS ORDERED: Morphine 2 MG/ML SYRINGE ONE (12:45)
[2020-11-10] MEDS ORDERED: Morphine 2 MG/ML SYRINGE IV ONE (12:46)
[2020-11-10] MEDS ORDERED: Lactated Ringers 1000 ml BAG 1,000 ML IV ONE (13:19)
[2020-11-10 14:16] LABS: HDL Cholesterol 26.6 mg/dL
[2020-11-10] MEDS ORDERED: Dextrose 50% Syringe 50 ml 25 GM/50 ML SYRINGE IV PUSH PRN (14:30)
[2020-11-10] MEDS ORDERED: nitroGLYCERIN DRIP 25,000 MCG/250 ML BTL IV SCH (15:00)
[2020-11-10] MEDS: Enoxaparin 40 MG/0.4 ML SYR SUBCUT SCH (18:08)
[2020-11-11 05:34] LABS: ABS Basophils 0.1 10^3/ul (0-0.2); ABS Eosinophils 0.6 10^3/ul (0-0.6); ABS Lymphocytes 1.8 10^3/ul (1.0-4.8); ABS Monocytes 0.6 10^3/ul (0-0.8); Eosinophil % 7.9 %; Hematocrit 38 % (42-52); Hemoglobin 12.9 g/dL (14.0-18.0); Lymphocyte % 25.2 %; Mean Corpuscular HGB Conc 34 g/dL (31-36); Mean Corpuscular Hemoglobin 29 pg (27-31); Mean Corpuscular Volume 85 fL (80-94); Mean Platelet Volume 7.2 fL (7.4-10.4); Platelet Count 319 10^3/uL (150-450); Red Blood Count 4.47 10^6 /uL (4.18-5.48); Red Cell Distribution Width 14 % (10-15)
[2020-11-11 05:51] LABS: Calcium 8.7 mg/dL (8.6-10.3); EGFR African American 118.7 (>60); EGFR Non-African American 98.1 (>60); Magnesium 1.4 mg/dL (1.9-2.7); Phosphorus 3.9 mg/dL (2.5-5.0); Potassium 4.3 mmol/L (3.5-5.0)
[2020-11-11] MEDS ORDERED: Magnesium Sulf 4 GM/100 ML IV 4,000 MG/100 ML BAG IVPB ONE (06:04)
[2020-11-11] MEDS ORDERED: Lactated Ringers 1000 ml BAG 1,000 ML IV ONE (07:29)
[2020-11-11 11:57] VITALS: BP 116/69
[2020-11-11] MEDS ORDERED: Perflutren Lipid Microsphere 3 ML VIAL ONE (14:23)
[2020-11-11] MEDS: Enoxaparin 40 MG/0.4 ML SYR SUBCUT SCH (14:24)
== END 2020-11-11 16:38 | disposition home or self-care (01) ==
LOC: ED 11:12 → ICU 14:18 → INTOOBSV 14:18 → ICU 16:11
PROVIDERS: ADMIT Internal Medicine; ATTEND Internal Medicine